=== PATIENT | male | born 1960 | race African-American/Black ===

== ENCOUNTER 2017-07-05 16:00 | Emergency (ER) | payer MEDICARE ==
[~2017-07-05] VITALS: Ht 170.2 cm; Wt 118.0 kg
[~2017-07-05 16:00] MED LIST: ALBU0.086 INH; ALBU8I INH; ALLO100T PO; CARV6.252 PO; CLON-352 PO; CLON.1 PO; COZA50TA PO; FURO1TAB93 PO; IPRA0.02 INH; IPRAAER IN; LEXA10TA PO; LORTA5 PO; LYRI150C PO; METF1000 PO; METO50TA PO; POTA20IN3 PO; PRIL20TA2 PO; ROBA750T3 PO; lancets TOP; test strips TOP
[2017-07-05 16:01] VITALS: BP 178/127; PULSE 100; RESP 20; TEMP 98.5; O2SAT 98
--- NOTE | 2017-07-05 17:00 | RADRPT ---
EXAM DATE/TIME: 07/05/2017 16:22 [facility] COMPARISON: CHEST SINGLE AP, December 14, 2014, 19:27. INDICATIONS : Short of breath. MEDICAL HISTORY : Diabetes. SURGICAL HISTORY : None. ENCOUNTER: Initial ACUITY: 1 day PAIN SCORE: 6/10 LOCATION: Bilateral chest FINDINGS: PA and lateral views of the chest demonstrate the lungs to be symmetrically aerated without evidence of mass, infiltrate or effusion. The cardiomediastinal contours are unremarkable. Mild degenerative changes and scoliosis of the thoracolumbar spine are noted. CONCLUSION: No acute cardiopulmonary disease. Renny Santiago MD on July 05, 2017 at 16:57 Board Certified Radiologist. This report was verified electronically.
[2017-07-05 17:05] LABS: AUTOMATED NEUTROPHIL # 5.4 TH/MM3 (1.8-7.7); BASOPHIL # 0.1 TH/MM3 (0-0.2); BASOPHIL % 0.9 % (0.0-2.0); EOSINOPHIL % 0.4 % (0.0-4.0); HEMATOCRIT 39.8 % (39.0-51.0); LYMPH % 21.8 % (9.0-44.0); LYMPHOCYTE # 1.7 TH/MM3 (1.0-4.8); MEAN CELL VOLUME 82.7 FL (80.0-100.0); MEAN CORPUSCULAR HEMOGLOBIN 26.9 PG (27.0-34.0); MEAN CORPUSCULAR HGB CONC 32.6 % (32.0-36.0); MEAN PLATELET VOLUME 7.8 FL (7.0-11.0); MONO % 7.5 % (0.0-8.0); MONOCYTE # 0.6 TH/MM3 (0-0.9); NEUT % 69.4 % (16.0-70.0); PLATELET COUNT 408 TH/MM3 (150-450); RED BLOOD COUNT 4.82 MIL/MM3 (4.50-5.90); RED CELL DISTRIBUTION WIDTH 17.3 % (11.6-17.2); WHITE BLOOD COUNT 7.8 TH/MM3 (4.0-11.0)
[2017-07-05 17:16] LABS: INTERNATIONAL NORMALIZED RATIO 1.1 RATIO
[2017-07-05 17:22] LABS: ALT (GPT) 12 U/L (12-78); AST (GOT) 14 U/L (15-37); BICARBONATE 26.5 MEQ/L (21.0-32.0); BLOOD UREA NITROGEN 13 MG/DL (7-18); CALCIUM 9.1 MG/DL (8.5-10.1); CHLORIDE 102 MEQ/L (98-107); CREATININE 0.79 MG/DL (0.60-1.30); GLOMERULAR FILTRATION RATE 123 ML/MIN (>89); GLUCOSE,RANDOM 106 MG/DL (74-106); SODIUM (NA) 135 MEQ/L (136-145)
[2017-07-05 17:25] LABS: ALKALINE PHOSPHATASE 95 U/L (45-117); TOTAL BILIRUBIN ADULT 0.3 MG/DL (0.2-1.0); TOTAL PROTEIN 8.4 GM/DL (6.4-8.2); TROPONIN I LESS THAN 0.02 NG/ML (0.02-0.05)
[2017-07-05] MEDS ORDERED: ACETAMINOPHEN/HYDROcodone 325 MG/10 MG TAB PO ONE (20:00)
[2017-07-05] MEDS ORDERED: DALBAVANCIN INJ 1,500 MG in DEXTROSE 5% IN WATE 500 ML INJ 500 ML IV STA ×2 (20:21)
--- NOTE | 2017-07-05 20:29 | PD ---
HPI Chief Complaint: Skin Problem Time Seen by Provider: 19:37 Travel History International Travel<30 days: No Contact w/Intl Traveler<30days: No Traveled to known affect area: No History of Present Illness HPI 57-year-old male with history of diabetes mellitus, CHF, COPD presents to the emergency department complaining of right lower extremity ulcers. States he has had these ulcers for several years and had wound care previously. States he has not had wound care in approximately 3 years. Says that he has been using his hydrocodone at home but this has not been reducing his pain. States his pain is moderate to severe and nothing seems to improve or worsen his pain. States he has a new primary that he is going to on Monday but cannot wait and decided to come to the emergency department today. Patient denies fevers or chills. Denies chest pain or shortness of breath. PFSH Past Medical History Arthritis: Yes Asthma: Yes Autoimmune Disease: No Anxiety: Yes Depression: Yes Heart Rhythm Problems: No Cancer: No Cardiovascular Problems: Yes High Cholesterol: Yes Chemotherapy: No Chest Pain: No Congestive Heart Failure: Yes COPD: Yes Diabetes: Yes Patient Takes Glucophage: Yes Diminished Hearing: No Endocrine: Yes Gastrointestinal Disorders: Yes GERD: Yes Genitourinary: No Headaches: Yes Hiatal Hernia: No Herniated Disk: Yes (bulging disc ) Hypertension: Yes Immune Disorder: No Kidney Stones: No Musculoskeletal: Yes Neurologic: No Psychiatric: No Reproductive: No Respiratory: Yes Immunizations Current: Yes Migraines: No Pneumonia: Yes Radiation Therapy: Yes (goiter) Renal Failure: No Seizures: No Sickle Cell Disease: No Sleep Apnea: Yes Thyroid Disease: Yes (THYROID MASS) Ulcer: Yes Tetanus Vaccination: < 5 Years Influenza Vaccination: No Past Surgical History Abdominal Surgery: Yes (abscess in stomach removed / throat surgery ) AICD: No Arteriovenous Shunt: No Cardiac Surgery: No Ear Surgery: No Endocrine Surgery: Yes (THYROID SURGERY/ GOITER) Eye Surgery: No Genitourinary Surgery: No Gynecologic Surgery: No Insulin Pump: No Joint Replacement: No Oral Surgery: No Pacemaker: No Thoracic Surgery: No Tonsillectomy: Yes Other Surgery: Yes Social History Alcohol Use: Yes Tobacco Use: Yes (cigar smoker ) Substance Use: No Allergies-Medications (Allergen,Severity, Reaction): Coded Allergies: lisinopril (Unverified Allergy, Severe, thoat close, 01/10/17) Reported Meds & Prescriptions Reported Meds & Active Scripts Active Lexapro (Escitalopram Oxalate) 10 Mg Tab 10 Mg PO DAILY Combivent Respimat (Albuterol/Ipratropium) Respimat Aer 1 Inhalation IN BID Potassium Chloride ER 20 meq 20 Meq Tab 40 Meq PO DAILY Prilosec Otc (Omeprazole Magnesium) 20 Mg Tab 20 Mg PO DAILY Hydrocodone/Acetaminophen 5 mg/325 mg 1 Tab Tab 1 Tab PO Q6H PRN Metformin (Metformin HCl) 1,000 Mg Tab 1,000 Mg PO BID Lasix (Furosemide) 40 Mg Tab 40 Mg PO BID Robaxin-750 (Methocarbamol) 750 Mg Tab 1,500 Mg PO TID Hydrocodone/Acetaminophen 5 mg/325 mg 1 Tab Tab 1 Tab PO Q6 Allopurinol 100 Mg Tab 100 Mg PO DAILY [lancets] 1 Unit TOP DAILY [test strips] 1 Unit TOP DAILY Proventil Ud 0.083% (2.5 Mg/3 Ml) (Albuterol Sulfate) 2.5 Mg/3 Ml Inha 2.5 Mg INH Q4 PRN Atrovent Ud 0.02% (0.5 Mg/2.5 Ml) (Ipratropium Lando) 0.5 Mg/2.5 Ml Nebu 0.5 Mg INH DAILY Lyrica (Pregabalin) 150 Mg Cap 150 Mg PO BID Clonidine Hcl (Clonidine HCl) 0.1 Mg Tab 0.1 Mg PO HS PRN Cozaar (Losartan Potassium) 50 Mg Tab 50 Mg PO DAILY Metoprolol Tartrate 50 mg (Metoprolol Tartrate) 50 Mg Tab 50 Mg PO BID Reported Catapres (Clonidine HCl) 0.1 Mg Tab 0.1 Mg PO DAILY Carvedilol 6.25 mg (Carvedilol) 6.25 Mg Tab 6.25 Mg PO DAILY Ventolin Hfa (Albuterol Sulfate) 8 Gm Aero 2 Puff INH Q6 PRN * SHAKE WELL BEFORE USE * Review of Systems Except as stated in HPI: all other systems reviewed are Neg Physical Exam Narrative GENERAL: WD, WN, in mild distress, kneeling on the bed with right knee on the bed. SKIN: Focused skin assessment warm/dry. HEAD: Atraumatic. Normocephalic. EYES: Pupils equal and round. No scleral icterus. No injection or drainage. ENT: No nasal bleeding or discharge. Mucous membranes pink and moist. NECK: Trachea midline. No JVD. CARDIOVASCULAR: Regular rate and rhythm. No murmur appreciated. RESPIRATORY: No accessory muscle use. Clear to auscultation. Breath sounds equal bilaterally. MUSCULOSKELETAL: No obvious deformities. No clubbing. No cyanosis. Bilateral lower extremities significant nonpitting edema and hypertrophic skin changes. Right lower extremity about the calf with multiple 4-6 cm round ulcers without exudate or drainage. Tender to palpation. NEUROLOGICAL: Awake and alert. No obvious cranial nerve deficits. Motor grossly within normal limits. Normal speech. PSYCHIATRIC: Appropriate mood and affect; insight and judgment normal. Data Data Last Documented VS Vital Signs Date Time Temp Pulse Resp B/P (MAP) Pulse Ox O2 Delivery O2 Flow Rate FiO2 07/05/17 23:09 07/05/17 16:01 98.5 100 20 98 Room Air Orders Orders Complete Blood Count With Diff (07/05/17 16:07) Comprehensive Metabolic Panel (07/05/17 16:07) Prothrombin Time / Inr (Pt) (07/05/17 16:07) Act Partial Throm Time (Ptt) (07/05/17 16:07) Chest, Pa & Lat (07/05/17 ) Electrocardiogram (07/05/17 ) Creatine Kinase (Cpk) (07/05/17 16:07) Troponin I (07/05/17 16:07) Acetamin-Hydrocod 325-10 Mg ([place] 10-32 (07/05/17 20:00) Asp:No Reaction To [facility]/Vanc (Asp Crit (07/05/17 20:30) Asp: Does Not Meet Inpt Admit (Asp Crit: (07/05/17 20:30) Asp: Iv Antibiotics Admit Only (Asp Crit (07/05/17 20:30) Asp: Location Of [facility] Admin (Asp Crit: (07/05/17 20:30) [facility] [place] (07/05/17 20:30) Dalbavancin Inj (Dalvance Inj) (07/05/17 20:21) Elevate (07/05/17 20:21) Ketorolac Inj (Toradol Inj) (07/05/17 21:30) Us Leg Venous Doppler (07/05/17 ) Ed Discharge Order (07/05/17 22:40) Labs Laboratory Tests Test 07/05/17 16:12 White Blood Count 7.8 TH/MM3 Red Blood Count 4.82 MIL/MM3 Hemoglobin 13.0 GM/DL Hematocrit 39.8 % Mean Corpuscular Volume 82.7 FL Mean Corpuscular Hemoglobin 26.9 PG Mean Corpuscular Hemoglobin Concent 32.6 % Red Cell Distribution Width 17.3 % Platelet Count 408 TH/MM3 Mean Platelet Volume 7.8 FL Neutrophils (%) (Auto) 69.4 % Lymphocytes (%) (Auto) 21.8 % Monocytes (%) (Auto) 7.5 % Eosinophils (%) (Auto) 0.4 % Basophils (%) (Auto) 0.9 % Neutrophils # (Auto) 5.4 TH/MM3 Lymphocytes # (Auto) 1.7 TH/MM3 Monocytes # (Auto) 0.6 TH/MM3 Eosinophils # (Auto) 0.0 TH/MM3 Basophils # (Auto) 0.1 TH/MM3 CBC Comment DIFF FINAL Differential Comment Prothrombin Time 11.0 SEC Prothromb Time International Ratio 1.1 RATIO Activated Partial Thromboplast Time 57.1 SEC Blood Urea Nitrogen 13 MG/DL Creatinine 0.79 MG/DL Random Glucose 106 MG/DL Total Protein 8.4 GM/DL Albumin 3.0 GM/DL Calcium Level 9.1 MG/DL Alkaline Phosphatase 95 U/L Aspartate Amino Transf (AST/SGOT) 14 U/L Alanine Aminotransferase (ALT/SGPT) 12 U/L Total Bilirubin 0.3 MG/DL Sodium Level 135 MEQ/L Potassium Level 4.0 MEQ/L Chloride Level 102 MEQ/L Carbon Dioxide Level 26.5 MEQ/L Anion Gap 7 MEQ/L Estimat Glomerular Filtration Rate 123 ML/MIN Total Creatine Kinase 75 U/L Troponin I LESS THAN 0.02 NG/ML MDM Medical Decision Making Medical Screen Exam Complete: Yes Emergency Medical Condition: Yes Differential Diagnosis Chronic venous stasis wound, cellulitis, DVT, Narrative Course 57-year-old male with history of diabetes mellitus, CHF, COPD presents to the emergency department complaining of right lower extremity ulcers. States he has had these ulcers for several years and had wound care previously. States he has not had wound care in approximately 3 years. Says that he has been using his hydrocodone at home but this has not been reducing his pain. States his pain is moderate to severe and nothing seems to improve or worsen his pain. States he has a new primary that he is going to on Monday but cannot wait and decided to come to the emergency department today. Patient denies fevers or chills. Denies chest pain or shortness of breath. Vital signs stable Physical exam findings consistent with chronic venous stasis ulcers with possible developing cellulitis. Because of patient's complaints of intense pain , ordered ultrasound to rule out DVT. After review of his electronic medical records, it appears that patient has been noncompliant with previous therapies. I recommend Dalvance for concern of noncompliance, developing cellulitis, and concern for return to the emergency department. The patient has had these ulcers for a significant amount of time (years) and associated with his lymphedema. He decided to come in today because of the significant pain. Patient was administered Dalvance in the emergency department today. Ultrasound negative for DVT. CBC & BMP Diagram 07/05/17 16:12 Total Protein 8.4 H, Albumin 3.0 L, Calcium Level 9.1, Alkaline Phosphatase 95, Aspartate Amino Transf (AST/SGOT) 14 L, Alanine Aminotransferase (ALT/SGPT) 12, Total Bilirubin 0.3 Advised that he should continues on medications for pain. Advised to follow with wound care. Diagnosis Primary Impression: Venous stasis ulcer of lower extremity Qualified Codes: I83.019 - Varicose veins of right lower extremity with ulcer of unspecified site; L97.919 - Non-pressure chronic ulcer of unspecified part of right lower leg with unspecified severity Additional Impression: Cellulitis Qualified Codes: L03.115 - Cellulitis of right lower limb Referrals: [facility] Additional Instructions: Follow up with your primary care physician within 2-3 days. Follow-up with wound care. If your symptoms persist or worsen, return to the emergency department. Keep area clean and dry and elevate her legs as much as possible You may bathe as normal but ensure you dry your legs thoroughly. You may use [id number] triple antibiotic ointments for your injury daily. Change dressings daily. If bleeding starts again, applied pressure and elevate the area. If he developed increased redness, swelling, or pain return to the emergency department. He received Dalvance today for your cellulitis. You do not require antibiotics to take at home. Disposition: 01 DISCHARGE HOME Condition: Stable Justice,Karen PA Jul 05, 2017 20:29
[2017-07-05] MEDS ORDERED: ASP: Location of Dalbavancin administration OTHER ONE (20:30)
[2017-07-05] MEDS ORDERED: ASP: No known hypersensitivity to Vanco, Telavancin, Dalbavancin OTHER ONE (20:30)
[2017-07-05] MEDS ORDERED: MISCELLANEOUS PHARMACY INFORMATION XX ONE (20:30)
[2017-07-05] MEDS ORDERED: ASP: Does not meet inpatient admission criteria OTHER ONE (20:30)
[2017-07-05] MEDS ORDERED: ASP: Only reason for admit - IV antibiotics OTHER ONE (20:30)
[2017-07-05] MEDS ORDERED: KETOROLAC TROMETHAMINE 60 MG/2 ML (IM) VIAL IM ONE (21:30)
--- NOTE | 2017-07-05 22:30 | RADRPT ---
EXAM DATE/TIME: 07/05/2017 21:58 [facility] COMPARISON: No previous studies available for comparison. INDICATIONS : Right leg pain and swelling. MEDICAL HISTORY : Congestive heart failure. Hypercholesterolemia. Chronic obstructive pulmonary disease. Thyroid mas s. Peripheral neuropathy. Cerebrovascular accident. HTN. Pneumonia. Sleep apnea. GERD. Ulcer. Arthrit is. Herniated disk. Diabetes. Depression. Anxiety. Measles. Radiation therapy. Blood transfusion. SURGICAL HISTORY : Tonsillectomy. Abdominal surgery. Throat surgery. ENCOUNTER: Initial ACUITY: 1 day PAIN SCORE: 7/10 LOCATION: Right leg. TECHNIQUE: Venous ultrasound of the leg was performed from the inguinal ligament to the proximal calf. Real-tommy e, color Doppler and spectral tracing, compression and augmentation techniques were used. FINDINGS: There is normal compressibility of the deep venous system from the inguinal region to the proximal ca lf. No echogenic clot is seen in the lumen of the common femoral, femoral, popliteal, and posterior tibial veins. There is a normal response of the venous system to proximal and distal augmentation an d respiration. There is nonspecific edema in the soft tissues. There is an enlarged lymph node in the right groin measuring 5.1 x 2.2 cm. CONCLUSION: 1. No evidence of DVT. 2. Enlarged prominent lymph node in the right groin measuring 5.1 x 2.2 cm. Prem Dove MD on July 05, 2017 at 22:26 Board Certified Radiologist. This report was verified electronically.
--- NOTE | 2017-07-07 09:17 | EKG ---
Date Performed: 07/05/2017 Time Performed: 16:59:06 PTAGE: 57 years EKG: SINUS TACHYCARDIA NONSPECIFIC T-WAVE ABNORMALITY ABNORMAL RHYTHM ECG Compared to PREVIOUS TRACING , the sinus rate has increased. PREVIOUS TRACIN12/14/2014 20.33 DOCTOR: Ron Alexander Interpretating Date/Time 07/07/2017 09:15:31
== END 2017-07-05 23:34 | disposition home or self-care (01) ==
LOC: NEPC 16:00
DX: I83.019 Varicose veins of right lower extremity with ulcer of unspecified site (principal); L97.919 Non-pressure chronic ulcer of unspecified part of right lower leg with unspecified severity; E11.622 Type 2 diabetes mellitus with other skin ulcer; L03.115 Cellulitis of right lower limb; R94.31 Abnormal electrocardiogram [ECG] [EKG]; E78.00 Pure hypercholesterolemia, unspecified; J44.9 Chronic obstructive pulmonary disease, unspecified; I11.0 Hypertensive heart disease with heart failure; I50.9 Heart failure, unspecified; K21.9 Gastro-esophageal reflux disease without esophagitis; F32.9 Major depressive disorder, single episode, unspecified; E07.9 Disorder of thyroid, unspecified; M19.90 Unspecified osteoarthritis, unspecified site; Z72.0 Tobacco use
CPT/HCPCS: 71046; 80053; 82550; 84484; 85025; 85610; 85730; 93005; 93971; 96372; 96374; 99285; J0875; J1885; J7060